=== PATIENT | male | born 1950 | race Caucasian/White ===

== ENCOUNTER 2016-04-18 08:50 | Day surgery (SDC) | payer BC ==
[2016-04-18] MEDS ORDERED: PROPOFOL 10 MG/ML VIAL IV ONE (14:00)
[2016-04-18] MEDS ORDERED: LIDOCAINE 2% MDV (20MG/ML) 20ML VIAL IV ONE (14:00)
[2016-04-18] MEDS ORDERED: FENTANYL PF 100MCG/2ML VIAL IV ONE (14:00)
--- NOTE | 2016-04-19 08:00 | Operative Note ---
DATE OF SURGERY: OPERATION: ESOPHAGOGASTRODUODENOSCOPY with Zamoraon dilation. PREOPERATIVE DIAGNOSIS: Pharyngoesophageal dysphagia of unclear etiology. POSTOPERATIVE DIAGNOSES: 1. Nonerosive antral gastritis. 2. Dysphagia. ESTIMATED BLOOD LOSS: None. SPECIMENS: None. PREPARATION: Not applicable. PROCEDURE: After informed consent was obtained from the patient, he was placed in the left lateral decubitus position in the endoscopy suite, sedated and monitored by the department of anesthesia. Once sedated, a well-lubricated GHY912 gastroscope was placed in the posterior oropharynx and under direct visualization passed to the proximal esophagus. The endoscope was advanced through the proximal, mid, and distal esophagus. There was no evidence of ulcers, erosions, strictures, varices, or mass lesion. There were no obvious changes throat would suggest eosinophilic esophagitis. The gastric body was unremarkable. In the antrum, there were some mild patchy erythematous changes. The duodenal bulb and sweep were unremarkable. J-turn views of the proximal stomach revealed no obvious mass lesion or inflammation. The endoscope was straightened and retracted from the patient. No abnormalities were identified. At this point a 52 Nepali Zamorano dilator was passed through the level of the maximal insertion and presumably to the level of the GE junction and removed. There was no resistance. There was no heme in the dilator. The endoscope was reinserted and there were no esophageal tears or any evidence of esophageal disruption noted. The endoscope was removed from the patient. RECOMMENDATIONS: We will have the patient undergo an esophagogram to further evaluate his swallowing issues. It is unclear to me whether this is a motility issue, as there does not appear to be an obvious structural abnormality. As always, thank you for allowing me to participate in the healthcare of your patients. Lito Danielson DO CC: Dr. Key DELAROSA
== END 2016-04-18 10:45 | disposition home or self-care (01) ==
LOC: HOP 08:50
PROVIDERS: ATTEND Internal Medicine Gastroenterology
DX: R13.10 Dysphagia, unspecified (principal); K29.60 Other gastritis without bleeding; E78.00 Pure hypercholesterolemia, unspecified
CPT/HCPCS: 43245; 00740; J3010

== ENCOUNTER 2016-06-26 20:57 | Emergency (ER) | payer BC ==
--- NOTE | 2016-06-26 21:54 | Emergency Department Record ---
History of Present Illness - General Chief Complaint: Shortness of breath Stated Complaint: RAPID PULSE Time Seen by Provider: 06/26/16 21:34 Source: Patient Mode of Arrival: Ambulatory Limitations: No limitations - History of Present Illness Initial Comments: The patient is here due to his HR being fast at home. He was walking on his treadmill and did 6 miles like he normally does and had no CP, SOB, WILLA or sweating. When he finished the walk about 2 hours ago his HR was about 110 beats per minute and usually slows down when he rests. Tonight his HR stayed at 110 for an hour after he was done walking. He denied any symptoms of pain, WILLA, sweating or any symptoms like his previous LA. Due to the HR staying elevated he decided to come to the ER. Presently he is asymptomatic and his HR is back to normal. MD Complaint: Anxiety Onset/Timin -: Hour(s) Worsens With: Nothing Associated Symptoms: Denies other symptoms Treatments Prior to Arrival: None - Related Data Home Oxygen Therapy: No Home Medications Medication Instructions Recorded Confirmed Last Taken Aspirin, Regular 325 mg PO DAILY 12/16/13 06/26/16 11/03/15 Atorvastatin Calcium [Lipitor] 40 mg PO DAILY 12/16/13 06/26/16 11/02/15 Carvedilol [Coreg] 3.125 mg PO BID 12/16/13 06/26/16 11/03/15 Gabapentin [Gabapentin] 300 mg PO TID 02/28/14 06/26/16 11/03/15 Pain Pump (Dilaudid) IP CONT 03/11/15 03/11/15 06/26/16 Hydrocodone/Ibuprofen [Vicoprofen 1 tab PO Q4H PRN 11/04/15 01/10/16 11/03/15 200-7.5 mg Tab] Allergies Allergy/AdvReac Type Severity Reaction Status Date / Time Penicillins Allergy Unknown RASH Verified 05/30/15 19:17 levofloxacin [From Levaquin] AdvReac Severe insomnia/an Verified 05/30/15 19:17 xiety Travel Screening - Travel/Exposure Within Last 30 Days Have you traveled within the last 30 days?: No - Travel/Exposure Within Last Year Have you traveled outside the [place] in the last year?: No - Additonal Travel Details Have you been exposed to anyone with a communicable illness?: No Review of Systems Constitutional: Denies: Chills, Fever Eyes: Denies: Eye discharge ENT: Denies: Congestion Respiratory: Denies: Cough, Dyspnea Cardiovascular: Denies: Arrhythmia, Chest pain, Dyspnea on exertion, Palpitations Past Medical History - SOCIAL HISTORY Smoking Status: Current every day smoker Alcohol Use: None Drug Use: None - RESPIRATORY Hx Respiratory Disorders: No - CARDIOVASCULAR Hx Cardio Disorders: Yes Hx Abnormal EKG: Yes (a fib) Hx Cardiac Cath: Yes Hx Heart Attack: Yes (2003) Hx Irregular Heartbeat: Yes Hx Pacemaker/Defib: Yes (pacer only) Hx Coronary Stent: Yes (2003 and 2012) - NEURO Hx Neuro Disorders: No - GI Hx GI Disorders: Yes Comment:: dysphagia - Hx Genitourinary Disorders: Yes Hx Kidney Stones: Yes - ENDOCRINE Hx Endocrine Disorders: Yes Hx Diabetes: Yes (diet controlled) Comment:: checks blood sugar occassionally 120-130 - MUSCULOSKELETAL Hx Musculoskeletal Disorders: Yes Hx Arthritis: Yes Comment:: degenerative spinal disease - PSYCH Hx Psych Problems: Yes Hx Anxiety: Yes - HEMATOLOGY/ONCOLOGY Hx Hematology/Oncology Disorders: Yes Hx Bruising: Yes Family Medical History Any Significant Family History?: Yes Hx Heart Disease: Father, Mother *Heart Comment: Both Parents had HOBSON's Physical Exam - General General Appearance: Alert, Oriented x3, Cooperative, No acute distress - Head Head exam: Atraumatic, Normocephalic, Normal inspection - Eye Eye exam: Normal appearance, PERRL - Neck Neck exam: Normal inspection, Full ROM. negative: Tenderness - Respiratory Respiratory exam: Normal lung sounds bilaterally. negative: Respiratory distress - Cardiovascular Cardiovascular Exam: Regular rate, Normal rhythm, Normal heart sounds. negative : Diastolic murmur, Systolic murmur - GI/Abdominal GI/Abdominal exam: Soft, Normal bowel sounds. negative: Tenderness - Extremities Extremities exam: Normal inspection, Full ROM, Normal capillary refill. negative: Tenderness - Neurological Neurological exam: Alert, Normal gait. negative: Abnormal gait, Motor sensory deficit Course Vital Signs 06/26/16 06/26/16 21:02 21:06 Temperature 98.5 F 98.5 F Pulse Rate 86 Pulse Rate [ 94 H Pulse Ox Probe] Respiratory 18 18 Rate Blood Pressure 168/84 Blood Pressure 168/84 [Left Arm] Pulse Ox 98 98 - Reevaluation(s) Reevaluation #1: The patient is doing very well at this time. He has had no further palpitation or high HR. 06/27/15 23:00 Reevaluation #2: The patient is ready for home. I did explain to him his lab tests are all WNL. He denies any further symptoms of high HR or any palpitations. I will put a consult in for an appointment with his Sales Representative Consultant Dr. Monroy for next week. 06/27/16 00:35 Medical Decision Making - Lab Data Result diagrams: 06/26/16 21:50 06/26/16 21:50 Disposition Disposition: Discharge Clinical Impression: Palpitations Disposition: Home, Self-Care Condition: (1) Good Instructions: Palpitations (ED) Additional Instructions: Please continue your regular medicines and see Dr. Monroy for recheck next week. Return to the ER for any problems. Referrals: [facility] [Provider Group] Forms: Patient Portal Access Time of Disposition: 00:32
[2016-06-26 22:02] LABS: BASO % 0.3 % (0-6); EOS % 1.8 % (0-6); GRAN % 79.1 % (47-80); HEMOGLOBIN 13.5 gm/dl (14.0-18.0); LYMPH % 12.4 % (16-45); MEAN CELL VOLUME 87.8 fl (81-97); MEAN CORPUSCULAR HEMOGLOBIN 30.4 pg (27-33); MEAN CORPUSCULAR HGB CONC 34.6 g/dl (32-36); MEAN PLATELET VOLUME 10.3 fl (7.4-10.4); MONO % 6.4 % (0-9); PLATELET COUNT 116 K/uL (130-400); RED BLOOD COUNT 4.44 M/uL (4.40-5.70); WHITE BLOOD COUNT W/O DIFF 6.8 K/uL (4.2-12.2)
[2016-06-26 22:15] LABS: ANION GAP 10.3 (7-16); BLOOD UREA NITROGEN 14 mg/dL (9-20); CARBON DIOXIDE 26.7 mmol/L (22-30); CREATINE PHOSPHOKINASE 109 U/L (55-170); CREATININE 0.8 mg/dL (0.66-1.25); EST GLOMERULAR FILTRATION RATE > 60 ml/min; GLUCOSE,RANDOM 163 mg/dL (70-110)
[2016-06-26 22:27] LABS: CKMB 2.5 ug/L (0-6); TROPONIN I < 0.012 ng/mL (0.00-0.034)
[2016-06-27 00:26] LABS: CKMB 2.1 ug/L (0-6); TROPONIN I < 0.012 ng/mL (0.00-0.034)
== END 2016-06-27 00:41 | disposition home or self-care (01) ==
LOC: ER 20:57
DX: R00.2 Palpitations (principal); R06.02 Shortness of breath; I48.91 Unspecified atrial fibrillation; E11.9 Type 2 diabetes mellitus without complications; I25.2 Old myocardial infarction; F17.210 Nicotine dependence, cigarettes, uncomplicated
CPT/HCPCS: 80048; 82550; 82553; 84484; 85025; 93005; 93010; 99284

== ENCOUNTER 2016-09-18 10:21 | Day surgery (SDC) | payer BC ==
--- NOTE | 2016-09-18 07:08 | History and Physical Report ---
DATE: 09/18/2016. CHIEF COMPLAINT: This is a patient with a history of noncardiogenic chest wall pain and intractable thoracic radiculitis. HISTORY OF PRESENT ILLNESS: Due to the failure of all therapy, he had a spinal cord stimulator trial conducted on 08/13/2016 with 75 to 90 percent pain control resulting. Due to the failure of all other therapies and the success of the stimulator trial, he presents for permanent implantation. PAST MEDICAL HISTORY: Noncontributory. PAST SURGICAL HISTORY: To be provided. MEDICATIONS ON ADMISSION: To be provided. ALLERGIES: Penicillin. PHYSICAL EXAMINATION: Height and Weight: Unavailable. Vital Signs: Unavailable. HEENT: Within normal limits. Lungs: Clear. Heart: Regular rate and rhythm. Abdomen: Nontender. Musculoskeletal: Examination of the musculoskeletal system shows the primary region of pain to be mid to inferior chest wall. This seems to extend from the posterior rib margins all the way to the sternum and the anterior axillary angle. The sensory meeks are intact. Neurologic: Cranial nerves are intact. IMPRESSION: 1. NONCARDIOGENIC CHEST WALL PAIN, ICD-10 CODE UNKNOWN. 2. THORACIC RADICULITIS, ICD-10 CODE M54.14. 3. INTERCOSTAL NEURITIS, ICD-10 CODE 258.0. PLAN: Due to the failure of all therapy and the success of the spinal cord stimulator trial, the patient presents today for the implantation of a permanent system. The procedure has been explained in detail. The potential risks, side effects, and complications have been reviewed including nerve root injury, spinal cord injury, dural puncture, spinal headache, and infection. He understands and has consented. We will consider the procedure outpatient, but an overnight stay will also be evaluated. LUI LUKE D.O. Date & Time JOB NUMBER: [id number] cc: Verenice Stephen
[~2016-09-18 10:21] MED LIST: ACETAMINOPHEN 1,000 MG/100 ML BTL IV ONE; CLINDAMYCIN 600MG/50ML PREMIX 600 MG/50 ML BAG IVPB ONE; FAMOTIDINE 20MG TABLET PO ONE; MECLIZINE 25 MG TABLET PO ONE; METOCLOPRAMIDE 10 MG TABLET PO ONE
[2016-09-18] MEDS ORDERED: LIDOCAINE 1% W/EPI 1:200,000 MPF 30ML SQ ONE (14:00)
[2016-09-18] MEDS ORDERED: CLINDAMYCIN 600MG/4 ML VIAL IV ONE (14:00)
[2016-09-18] MEDS ORDERED: BUPIVACAINE 0.5% W/EPI MPF 30 ML VIAL IVP ONE (14:00)
[2016-09-18] MEDS ORDERED: HYDROMORPHONE HCL 2 MG/ML VIAL IM PRN (16:04)
[2016-09-18] MEDS ORDERED: METOCLOPRAMIDE 10 MG TABLET PO PRN (16:04)
[2016-09-18] MEDS ORDERED: OXYCODONE/APAP 10MG-325MG TABLET PO PRN ×2 (16:04)
[2016-09-18] MEDS ORDERED: HYDROMORPHONE HCL 1 MG/ML CPJ IM PRN (16:04)
[2016-09-18] MEDS ORDERED: TEMAZEPAM 15 MG CAPSULE PO PRN ×2 (16:04)
[2016-09-18] MEDS ORDERED: DIPHENHYDRAMINE HCL 25 MG CAPSULE PO PRN ×2 (16:04)
[2016-09-18] MEDS ORDERED: DIPHENHYDRAMINE HCL IV 50 MG/ML VIAL IVP PRN ×2 (16:04)
[2016-09-18] MEDS ORDERED: HYDROCODONE/APAP 7.5/325MG TABLET PO PRN ×2 (16:04)
[2016-09-18] MEDS ORDERED: AL HYDROX/MAG HYDROX 30ML UD PO PRN (16:04)
[2016-09-18] MEDS ORDERED: METOCLOPRAMIDE HCL 10 MG/2 ML VIAL IVP PRN (16:04)
[2016-09-18] MEDS ORDERED: ACETAMINOPHEN 325 MG TAB PO PRN ×2 (16:04)
[2016-09-18] MEDS ORDERED: SENNOSIDES/DOCUSATE SODIUM UD CAPSULE PO PRN ×2 (16:04)
[2016-09-18] MEDS ORDERED: LIDOCAINE 2% MDV (20MG/ML) 20ML VIAL IV ONE (16:35)
[2016-09-18] MEDS ORDERED: PROPOFOL 10 MG/ML VIAL IV ONE (16:35)
[2016-09-18] MEDS ORDERED: *PACU ONLY* KETAMINE HCL 10 MG/ML (20ML) VIAL IV ONE (16:35)
[2016-09-18] MEDS ORDERED: MIDAZOLAM HCL 2MG/2ML VIAL IV ONE (16:35)
[2016-09-18] MEDS ORDERED: FENTANYL PF 100MCG/2ML VIAL IV ONE (16:35)
--- NOTE | 2016-09-18 16:51 | Operative Note - [place] ---
DATE OF SURGERY: 09/18/16 PREOPERATIVE DIAGNOSES: 1. NONCARDIOGENIC CHEST WALL PAIN, ICD-10 CODE = UNKNOWN. 2. THORACIC RADICULITIS, ICD-10 CODE = M54.16. OPERATION: 1. FLUOROSCOPICALLY-GUIDED EPIDURAL ACCESS LEFT T11-12, PLACEMENT OF SPINAL CORD STIMULATOR LEAD 1, A [employer] INFINION 16 WITH 16 ELECTRODES POSITIONED LEFT, T4. 2. COMPLEX PROGRAMMING LEAD 1, 20 MINUTES. 3. FLUOROSCOPICALLY-GUIDED EPIDURAL ACCESS LEFT T12-L1, PLACEMENT OF SPINAL CORD STIMULATOR LEAD 2, A [employer] INFINION 16 WITH 16 ELECTRODES POSITIONED RIGHT, T4. 4. COMPLEX PROGRAMMING LEAD 2, 20 MINUTES. 5. INCISION, SUBCUTANEOUS DISSECTION, AND ANCHORING OF LEAD 1 AND LEAD 2 WITH [employer] LOCKING ANCHOR. 6. INCISION, SUBCUTANEOUS DISSECTION, AND CREATION OF SUBCUTANEOUS POUCH AT LEFT POSTERIOR GLUTEAL MARGIN FOR GENERATOR IDENTIFIED A [employer] PROGRAMMABLE RECHARGEABLE. 7. TUNNELING BETWEEN POUCHES. PLACEMENT OF EXTERNAL PORTION OF LEAD 1 AND LEAD 2 INTO GENERATOR POUCH, EACH LEAD INTERFACED WITH BIFURCATED EXTENSION, EACH BIFURCATED EXTENSION INTERFACED TO GENERATOR. 8. PLACEMENT OF GENERATOR POUCH SECURING TO FASCIA WITH NONABSORBABLE SUTURE, PLACEMENT OF LEADS INTO POUCH. CLOSURE OF INCISIONS, VICRYL FOR FASCIA, RUNNING SUBCUTICULAR VICRYL FOR SKIN. DERMABOND CLOSURE. 9. COMPLEX PROGRAMMING, RECOVERY ROOM, INTERNAL GENERATOR HOME USE, TWO STIMULATORS, 20 MINUTES. SURGEON: LUI LUKE D.O. ANESTHESIA: LOCAL SEDATION. ANESTHESIA PROVIDER: SHEMAR SOLER CRNA. INDICATION: This patient with a history of intractable noncardiogenic chest wall pain and thoracic radiculitis. Due to the failure of all therapy, a spinal cord stimulator trial was conducted with up to 75 to 90% pain control. Due to the failure of all therapies and the success of the stimulator trial, he presents for implantation of a permanent system. PROCEDURE: Intravenous line, vital sign monitoring, IV sedation. Prepped and draped sterile technique by Anesthesia. With the patient prone, sterile prep, sterile technique, under imaging, the epidural interspace from the left at 11- 12 and 12-1 infiltrated then two separate curved access Epimed needles with loss -of-resistance into the space. Spinal cord stimulator lead 1, a [employer] Infinion 16 with 16 electrodes positioned left of the midline T4. With the epidural access at 12-1, spinal cord stimulator lead 2, a [employer] Infinion 16 with 16 electrodes, positioned right of the midline T4. Complex programming of lead 1 over 20 minute followed by complex programming of lead 2 over 20 minutes ultimately resulting in patterns of stimulation across the chest wall consistent with the area of his noncardiogenic pain. When asked, the patient indicating we had all the areas of his pain. He was given the option to implant the system, continue to program, or remove; he opted to implant. Questions were repeated with the same response. The skin above and below the needles were infiltrated, incision made, and subcutaneous dissection was conducted to the supraspinous fascia. The leads were removed and each lead was anchored to the supraspinous fascia with a [employer] [place]. At the left posterior gluteal margin or a site picked by the patient for the generator, skin infiltrated, incision made, and subcutaneous dissection was conducted to form a pouch of suitable size and depth for the generator identified as a [employer] Programmable Rechargeable. A tunneling tool was then used to carry the leads into the generator pouch and each lead was interfaced with a bifurcated extension, each bifurcated extension interfaced to the generator. Antibiotic irrigation. Bovie for hemostasis. The generator was anchored to the fascia with nonabsorbable suture and then the incisions were closed Vicryl for fascia and running subcuticular Vicryl for skin. Dermabond closure system was placed at the left posterior gluteal margin. The midline incision, because of oozing most probably because of nonsteroidal anti- inflammatory and Aspirin use, after closing, a pressure dressing was applied. He was then transported to the Recovery Room stable showing no side-effects from the procedure or the sedation. When fully awake, complex programming of the leads were performed with the internal generator over 20 minutes re- establishing stimulation and pain control to all of the appropriate areas. He will be kept overnight for observation because of the midline incision drainage. He will be kept flat, keeping pressure on the wound for the next four hours, then slowly elevated but monitored through the night, then discharged in the morning. DISCHARGE INSTRUCTIONS: 1. The sites will remain clean and dry. No showering or bathing in any way that would disrupt dressings. If it happens, contact the clinic. 2. Standard medications resumed, including, Levaquin, the antibiotic, 500 mg once a day for 14 days. 3. All other medications resumed. He will withhold Aspirin and nonsteroidal anti -inflammatories. If he has problems with the antibiotic, he should contact the clinic for substitution. All other instructions provided, numbers to contact, problems given. He will be discharged in the morning. cc: Dr. Kai Blackburn JOB NUMBER: [id number] MTDD
[2016-09-18] MEDS ORDERED: METOPROLOL SUCC 25 MG TAB.ER PO SCH (17:00)
[2016-09-18] MEDS: GABAPENTIN 300 MG CAPSULE PO SCH ×2 (18:17→21:07)
[2016-09-18] MEDS: 0.9 % SODIUM CHLORIDE 10ML SYR IVP SCH (21:09)
[2016-09-18] MEDS: CLINDAMYCIN 600MG/50ML PREMIX 600 MG/50 ML BAG IVPB SCH (21:09)
[2016-09-18] MEDS ORDERED: ATORVASTATIN 20 MG TABLET PO SCH (22:00)
[2016-09-19] MEDS: CLINDAMYCIN 600MG/50ML PREMIX 600 MG/50 ML BAG IVPB SCH ×2 (05:25→09:31)
[2016-09-19] MEDS: GABAPENTIN 300 MG CAPSULE PO SCH (09:32)
[2016-09-19] MEDS: 0.9 % SODIUM CHLORIDE 10ML SYR IVP SCH (09:33)
--- NOTE | 2016-09-21 08:05 | RADIOLOGY REPORT ---
EXAM: SPINE, 1 VIEW HISTORY: POST SPINAL CORD STIMULATOR IMPLANT. TECHNIQUE: Single AP view of the thoracic spine. COMPARISON: No prior thoracic spine series with which to compare. Comparison is made with a two-view chest x-ray of 01/17/16, however. FINDINGS: Since the prior chest x-ray, two catheters are seen to overlie the spine presumably extending up from the lumbar region and extending up into the thoracic region to the approximate level of theT3 and T4 vertebrae. Previously seen pacemaker remains in place. IMPRESSION: THE SPINAL CANAL CATHETERS EXTEND UP INTO THE THORACIC REGION WITH THE MORE SUPERIOR OF THE TWO AT THE T3 LEVEL AND THE MORE INFERIOR OF THE TWO AT THE T4 LEVEL. JOB NUMBER: [id number] MTDD
== END 2016-09-19 11:45 | disposition home or self-care (01) ==
LOC: SUR 10:21 → MEDSURG 16:34 → SUR 09-19 11:45
PROVIDERS: ATTEND Pain Medicine Interventional Pain Medicine
DX: M54.16 Radiculopathy, lumbar region (principal); R07.89 Other chest pain; G58.0 Intercostal neuropathy; E78.00 Pure hypercholesterolemia, unspecified; I48.91 Unspecified atrial fibrillation; Z95.0 Presence of cardiac pacemaker
CPT/HCPCS: 63685; 63650 ×2; 00300; 95972; 72020; J3010

== ENCOUNTER 2016-10-13 10:03 | Emergency (ER) | payer BC ==
[2016-10-13 10:33] LABS: URINE APPEARANCE CLOUDY; URINE BILIRUBIN NEGATIVE (NEGATIVE); URINE BLOOD LARGE (NEGATIVE); URINE COLOR RED; URINE KETONE 15 mg/dL (NEGATIVE); URINE LEUKOCYTE ESTERASE MODERATE (NEGATIVE); URINE NITRITE POSITIVE (NEGATIVE)
[2016-10-13 10:34] LABS: URINE PROTEIN 300 mg/dL (NEGATIVE)
--- NOTE | 2016-10-13 10:35 | Emergency Department Record ---
History of Present Illness - General Chief complaint: Male Urogenital Problem Stated complaint: URINATING BLOOD Time Seen by Provider: 10/13/16 10:17 Source: Patient, RN notes reviewed Mode of Arrival: Ambulatory - History of Present Illness Initial comments: bloody urine this am and he said he urinated last night and it was burning but he didn't have the light on so he doesn't know if blood in the toilet than. Back stimulator placed 4 weeks ago and it is drainaing at the insertion site and he was on cipro but he felt achy from that and yesterday Dr. El switched him to clindamycin. Complaint: Dysuria Onset/Timin -: Hour(s) Radiation: None Reports: Blood in urine, Dysuria - Related Data Home Medications Medication Instructions Recorded Confirmed Last Taken Aspirin, Regular 325 mg PO DAILY 12/16/13 06/26/16 10/13/16 Atorvastatin Calcium [Lipitor] 40 mg PO DAILY 12/16/13 10/13/16 10/13/16 Carvedilol [Coreg] 3.125 mg PO BID 12/16/13 06/26/16 10/13/16 Gabapentin [Gabapentin] 300 mg PO TID 02/28/14 10/13/16 10/13/16 Pain Pump (Dilaudid) IP CONT 03/11/15 03/11/15 10/13/16 Hydrocodone/Ibuprofen [Vicoprofen 1 tab PO Q4H PRN 11/04/15 01/10/16 10/13/16 200-7.5 mg Tab] Aspirin 325 mg PO DAILY 10/13/16 10/13/16 10/13/16 Clindamycin HCl 1 tab PO QID 10/13/16 10/13/16 10/13/16 Guaifenesin [Mucus Relief] 400 mg PO DAILY 10/13/16 10/13/16 10/13/16 Metoprolol Succinate [Toprol Xl] 25 mg PO DAILY 10/13/16 10/13/16 10/13/16 Naloxegol Oxalate [Movantik] 25 mg PO DAILY 10/13/16 10/13/16 10/13/16 Sennosides [Senna] 8.6 mg PO DAILY 10/13/16 10/13/16 10/13/16 Previous Rx's Medication Instructions Recorded Sulfamethoxazole/Trimethoprim 1 each PO BID #20 tablet 10/13/16 [Bactrim Ds Tablet] Allergies Allergy/AdvReac Type Severity Reaction Status Date / Time Penicillins Allergy Unknown RASH Verified 05/30/15 19:17 levofloxacin [From Levaquin] AdvReac Severe insomnia/an Verified 05/30/15 19:17 xiety Travel Screening - Travel/Exposure Within Last 30 Days Have you traveled within the last 30 days?: No - Travel/Exposure Within Last Year Have you traveled outside the [place] in the last year?: No - Additonal Travel Details Have you been exposed to anyone with a communicable illness?: No - Travel Symptoms Symptom Screening: None Review of Systems Reviewed: No additional complaints except as noted below Constitutional: Reports: As per HPI. Denies: Chills, Fever, Malaise, Night sweats, Weakness, Weight change Eyes: Reports: As per HPI. Denies: Eye discharge, Eye pain, Photophobia, Vision change ENT: Reports: As per HPI. Denies: Congestion, Dental pain, Ear pain, Epistaxis , Hearing loss, Throat pain Respiratory: Reports: As per HPI. Denies: Cough, Dyspnea, Hemoptysis, Stridor, Wheezes Cardiovascular: Reports: As per HPI. Denies: Arrhythmia, Chest pain, Dyspnea on exertion, Edema, Murmurs, Orthopnea, Palpitations, Paroxysmal nocturnal dyspnea, Rheumatic Fever, Syncope Endocrine: Reports: As per HPI. Denies: Fatigue, Heat or cold intolerance, Polydipsia, Polyuria Gastrointestinal: Reports: As per HPI. Denies: Abdominal pain, Constipation, Diarrhea, Hematemesis, Hematochezia, Melena, Nausea, Vomiting Genitourinary: Reports: As per HPI, Dysuria, Hematuria. Denies: Frequency, Incontinence, Retention, Testicular pain, Testicular mass, Urgency Musculoskeletal: Reports: As per HPI. Denies: Arthralgia, Back pain, Gout, Joint swelling, Myalgia, Neck pain Skin: Reports: As per HPI. Denies: Bruising, Change in color, Change in hair/ nails, Lesions, Pruritus, Rash Neurological: Reports: As per HPI. Denies: Abnormal gait, Confusion, Headache, Numbness, Paresthesias, Seizure, Tingling, Tremors, Vertigo, Weakness Psychiatric: Reports: As per HPI. Denies: Anxiety, Auditory hallucinations, Depression, Homicidal thoughts, Suicidal thoughts, Visual hallucinations Hematological/Lymphatic: Reports: As per HPI. Denies: Anemia, Blood Clots, Easy bleeding, Easy bruising, Swollen glands Past Medical History - SOCIAL HISTORY Smoking Status: Current every day smoker Alcohol Use: None Drug Use: None - RESPIRATORY Hx Respiratory Disorders: No - CARDIOVASCULAR Hx Cardio Disorders: Yes Hx Abnormal EKG: Yes (a fib) Hx Cardiac Cath: Yes Hx Heart Attack: Yes (2003) Hx Irregular Heartbeat: Yes Hx Pacemaker/Defib: Yes (pacer only) Hx Coronary Stent: Yes (2003 and 2012) - NEURO Hx Neuro Disorders: Yes Comment:: SCS and pain pump - GI Hx GI Disorders: Yes Hx of Polyps: Yes (COLON BENIGN) Comment:: dysphagia - Hx Genitourinary Disorders: Yes Hx Kidney Stones: Yes - ENDOCRINE Hx Endocrine Disorders: Yes Hx Diabetes: Yes (diet controlled) Comment:: checks blood sugar occassionally 120-130 - MUSCULOSKELETAL Hx Musculoskeletal Disorders: Yes - PSYCH Hx Psych Problems: No - HEMATOLOGY/ONCOLOGY Hx Hematology/Oncology Disorders: Yes Hx Bruising: Yes Family Medical History Any Significant Family History?: No Hx Heart Disease: Father, Mother *Heart Comment: Both Parents had HOBSON's Physical Exam - General General Appearance: Alert, Oriented x3, Cooperative, No acute distress - Head Head exam: Normal inspection - Eye Eye exam: Normal appearance, PERRL Pupils: Normal accommodation - ENT ENT exam: Normal exam, Mucous membranes moist, Normal external ear exam, Normal orophraynx, TM's normal bilaterally Ear exam: Normal external inspection. negative: External canal tenderness Nasal Exam: Normal inspection. negative: Discharge, Sinus tenderness Mouth exam: Normal external inspection, Tongue normal Teeth exam: Normal inspection. negative: Dental caries Throat exam: Normal inspection. negative: Tonsillar erythema, Tonsillar exudate - Neck Neck exam: Normal inspection, Full ROM. negative: Tenderness - Respiratory Respiratory exam: Normal lung sounds bilaterally. negative: Respiratory distress - Cardiovascular Cardiovascular Exam: Regular rate, Normal rhythm, Normal heart sounds - GI/Abdominal GI/Abdominal exam: Soft, Normal bowel sounds. negative: Tenderness - Rectal Rectal exam: Deferred - exam: Deferred - Extremities Extremities exam: Normal inspection, Full ROM, Normal capillary refill. negative: Tenderness - Back Back exam: Reports: Normal inspection, Full ROM. Denies: Muscle spasm, Rash noted, Tenderness - Neurological Neurological exam: Alert, Normal gait, Oriented X3, Reflexes normal - Psychiatric Psychiatric exam: Normal affect, Normal mood - Skin Skin exam: Dry, Intact, Normal color, Warm Course Vital Signs 10/13/16 10:04 Temperature 98.3 F Pulse Rate 72 Respiratory 16 Rate Blood Pressure 116/80 Pulse Ox 99 Disposition Clinical Impression: Hematuria UTI (urinary tract infection) Qualifiers: Urinary tract infection type: acute cystitis Hematuria presence: with hematuria Qualified Code(s): N30.01 - Acute cystitis with hematuria Disposition: Home, Self-Care Condition: (2) Stable Instructions: Hematuria (ED), Urinary Traction Infection in Older Adults (ED) Additional Instructions: follow up with DR. Perez in one week follow up with urology and consult will be started today for Dr. Jaramillo for cystoscopy. Prescriptions: Sulfamethoxazole/Trimethoprim [Bactrim Ds Tablet] 1 each PO BID #20 tablet Forms: Patient Portal Access Time of Disposition: 10:58
[2016-10-13 10:42] LABS: URINE BACTERIA 1+; URINE EPITHELIAL CELLS 0 - 2 (FEW)
[2016-10-13 10:46] LABS: BASO % 0.2 % (0-6); EOS % 2.5 % (0-6); GRAN % 78.3 % (47-80); HEMATOCRIT 37.9 % (42.0-52.0); HEMOGLOBIN 13.2 gm/dl (14.0-18.0); LYMPH % 13.2 % (16-45); MEAN CELL VOLUME 86.9 fl (81-97); MEAN CORPUSCULAR HGB CONC 34.8 g/dl (32-36); MONO % 5.8 % (0-9); PLATELET COUNT 216 K/uL (130-400); RED BLOOD COUNT 4.36 M/uL (4.40-5.70); RED CELL DISTRIBUTION WIDTH 11.7 % (11.5-14.5); WHITE BLOOD COUNT W/O DIFF 9.6 K/uL (4.2-12.2)
[2016-10-13 10:48] LABS: MEAN CORPUSCULAR HEMOGLOBIN 30.2 pg (27-33)
[2016-10-13 10:59] LABS: ANION GAP 8.6 (7-16); BLOOD UREA NITROGEN 14 mg/dL (9-20); CARBON DIOXIDE 25.4 mmol/L (22-30); CREATININE 0.7 mg/dL (0.66-1.25); EST GLOMERULAR FILTRATION RATE > 60 ml/min; GLUCOSE,RANDOM 127 mg/dL (70-110)
== END 2016-10-13 11:12 | disposition home or self-care (01) ==
LOC: ER 10:03
DX: N30.01 Acute cystitis with hematuria (principal)
CPT/HCPCS: 80048; 81001; 85025; 99283

== ENCOUNTER 2016-10-21 11:49 | Emergency (ER) | payer BC ==
[2016-10-21 12:23] LABS: HEMATOCRIT 34.6 % (42.0-52.0); HEMOGLOBIN 11.8 gm/dl (14.0-18.0); MEAN CELL VOLUME 87.8 fl (81-97); MEAN CORPUSCULAR HEMOGLOBIN 29.9 pg (27-33); MEAN CORPUSCULAR HGB CONC 34.1 g/dl (32-36); MEAN PLATELET VOLUME 10.2 fl (7.4-10.4); PLATELET COUNT 184 K/uL (130-400); RED BLOOD COUNT 3.94 M/uL (4.40-5.70); RED CELL DISTRIBUTION WIDTH 12.1 % (11.5-14.5); WHITE BLOOD COUNT W/O DIFF 7.7 K/uL (4.2-12.2)
--- NOTE | 2016-10-21 12:23 | Emergency Department Record ---
History of Present Illness - General Chief complaint: Rash Stated complaint: Rash Time Seen by Provider: 10/21/16 12:06 Source: Patient, Family Mode of Arrival: Ambulatory Limitations: No limitations - History of Present Illness Initial comments: The patient is here due to having a rash on the L arm mainly with a minimal rash to the lower legs and R arm for a week. The L arm rash is now improving. He denies any pain, itching, discomfort, WILLA, SOB or trouble swallowing. The patient has been on Clindamycin for weeks due to having a pain pump placed a month ago and having drainage in the area. That was placed by Dr. El and the patient does have an appointment in 4 days with him. He also was in the ER 8 days ago for hematuria and was placed on Bacrim. The patient states the hematuria has resolved and he does have an appointment with a Urologist in 2 days. MD complaint: Rash Onset/Timin -: Days(s) Severity: Mild Severity scale (1-10): 2 Quality: Aching Consistency: Constant - Related Data Home Medications Medication Instructions Recorded Confirmed Last Taken Aspirin, Regular 325 mg PO DAILY 12/16/13 10/21/16 1 Day Ago ~10/20/16 Atorvastatin Calcium [Lipitor] 40 mg PO DAILY 12/16/13 10/21/16 1 Day Ago ~10/20/16 Carvedilol [Coreg] 3.125 mg PO BID 12/16/13 10/21/16 1 Day Ago ~10/20/16 Gabapentin [Gabapentin] 300 mg PO TID 02/28/14 10/21/16 1 Day Ago ~10/20/16 Pain Pump (Dilaudid) IP CONT 03/11/15 03/11/15 10/21/16 Hydrocodone/Ibuprofen [Vicoprofen 1 tab PO Q4H PRN 11/04/15 10/21/16 1 Day Ago 200-7.5 mg Tab] ~10/20/16 Aspirin 325 mg PO DAILY 10/13/16 10/21/16 1 Day Ago ~10/20/16 Clindamycin HCl 1 tab PO QID 10/13/16 10/21/16 1 Day Ago ~10/20/16 Guaifenesin [Mucus Relief] 400 mg PO DAILY 10/13/16 10/21/16 1 Day Ago ~10/20/16 Metoprolol Succinate [Toprol Xl] 25 mg PO DAILY 10/13/16 10/21/16 1 Day Ago ~10/20/16 Naloxegol Oxalate [Movantik] 25 mg PO DAILY 10/13/16 10/21/16 1 Day Ago ~10/20/16 Sennosides [Senna] 8.6 mg PO DAILY 10/13/16 10/21/16 1 Day Ago ~10/20/16 Previous Rx's Medication Instructions Recorded Sulfamethoxazole/Trimethoprim 1 each PO BID #20 tablet 10/13/16 [Bactrim Ds Tablet] Allergies Allergy/AdvReac Type Severity Reaction Status Date / Time Penicillins Allergy Unknown RASH Verified 10/21/16 11:59 levofloxacin [From Levaquin] AdvReac Severe insomnia/an Verified 10/21/16 11:59 xiety Travel Screening - Travel/Exposure Within Last 30 Days Have you traveled within the last 30 days?: No - Travel/Exposure Within Last Year Have you traveled outside the [place] in the last year?: No - Additonal Travel Details Have you been exposed to anyone with a communicable illness?: No - Travel Symptoms Symptom Screening: None Review of Systems Constitutional: Denies: Chills, Fever Eyes: Denies: Eye discharge ENT: Denies: Congestion Respiratory: Denies: Cough, Dyspnea Past Medical History - SOCIAL HISTORY Smoking Status: Current every day smoker Alcohol Use: None Drug Use: None - RESPIRATORY Hx Respiratory Disorders: No - CARDIOVASCULAR Hx Cardio Disorders: Yes Hx Abnormal EKG: Yes (a fib) Hx Cardiac Cath: Yes Hx Heart Attack: Yes (2003) Hx Irregular Heartbeat: Yes Hx Pacemaker/Defib: Yes (pacer only) Hx Coronary Stent: Yes (2003 and 2012) - NEURO Hx Neuro Disorders: Yes Comment:: SCS and pain pump - GI Hx GI Disorders: Yes Hx of Polyps: Yes (COLON BENIGN) Comment:: dysphagia - Hx Genitourinary Disorders: Yes Hx Kidney Stones: Yes - ENDOCRINE Hx Endocrine Disorders: Yes Hx Diabetes: Yes (diet controlled) Comment:: checks blood sugar occassionally 120-130 - MUSCULOSKELETAL Hx Musculoskeletal Disorders: Yes - PSYCH Hx Psych Problems: No Hx Anxiety: Yes - HEMATOLOGY/ONCOLOGY Hx Hematology/Oncology Disorders: Yes Hx Bruising: Yes Family Medical History Any Significant Family History?: Yes Hx Heart Disease: Father, Mother *Heart Comment: Both Parents had HOBSON's Physical Exam - General General Appearance: Alert, Oriented x3, Cooperative, No acute distress - Head Head exam: Atraumatic, Normocephalic, Normal inspection - Eye Eye exam: Normal appearance, PERRL - ENT Throat exam: Normal inspection. negative: Tonsillar erythema, Tonsillar exudate - Neck Neck exam: Normal inspection, Full ROM. negative: Tenderness - Respiratory Respiratory exam: Normal lung sounds bilaterally. negative: Respiratory distress - Cardiovascular Cardiovascular Exam: Regular rate, Normal rhythm, Normal heart sounds - Extremities Extremities exam: Full ROM, Other (There are discrete mildly erythematous macular and papular lesions to the posterior L arm mainly with just a few lesions to the R posterior arm and anterior lower legs. They are not warm, tender or urticarial.). negative: Normal inspection, Tenderness Course Vital Signs 10/21/16 11:50 Temperature 98.7 F Pulse Rate 63 Respiratory 16 Rate Blood Pressure 122/79 Pulse Ox 98 - Reevaluation(s) Reevaluation #1: The patient is doing well. He denies any pain or discomfort and no new symptoms. I did go over his lab results and did discus the plan with his PCP Dr. Crook. We will stop the Bactrim and have him keep his appointments for this week as planned. 10/21/16 13:23 Medical Decision Making - Lab Data Result diagrams: 10/21/16 12:18 10/21/16 12:18 Disposition Disposition: Discharge Clinical Impression: Rash Disposition: Home, Self-Care Condition: (1) Good Instructions: Acute Rash (ED) Additional Instructions: Please stop the Bactrim and use Benadryl for the itching. Please keep your appointments with your doctors for this week. Please see your PCP if not better in 3 days. Return to the ER for any problems. Forms: Patient Portal Access Time of Disposition: 13:23 Quality - Quality Measures Quality Measures: N/A - Blood Pressure Screening Blood Pressure Classification: Pre-Hypertensive BP Reading Systolic Measurement: 122 Diastolic Measurement: 79 Screening for High Blood Pressure: < Pre-Hypertensive BP, F/U Documented > [ [id number]] Pre-Hypertensive Follow-up Interventions: Follow-up with rescreen every year.
[2016-10-21 12:35] LABS: ANION GAP 8.4 (7-16); BLOOD UREA NITROGEN 15 mg/dL (9-20); CARBON DIOXIDE 25.6 mmol/L (22-30); CREATININE 0.8 mg/dL (0.66-1.25); EST GLOMERULAR FILTRATION RATE > 60 ml/min; GLUCOSE,RANDOM 101 mg/dL (70-110)
[2016-10-21 12:52] LABS: URINE APPEARANCE SL CLOUDY; URINE BILIRUBIN NEGATIVE (NEGATIVE); URINE BLOOD MODERATE (NEGATIVE); URINE COLOR YELLOW; URINE GLUCOSE (UA) NEGATIVE (NEGATIVE); URINE KETONE NEGATIVE (NEGATIVE); URINE LEUKOCYTE ESTERASE TRACE (NEGATIVE); URINE NITRITE NEGATIVE (NEGATIVE); URINE PROTEIN TRACE (NEGATIVE); URINE UROBILINOGEN 0.2 E.U./dL (0.20 - 1.00)
[2016-10-21 13:04] LABS: URINE BACTERIA 1+; URINE SQUAMOUS EPITHELIAL CELL 0 - 2 /hpf
== END 2016-10-21 13:34 | disposition home or self-care (01) ==
LOC: ER 11:49
DX: R21 Rash and other nonspecific skin eruption (principal); I25.2 Old myocardial infarction; F17.210 Nicotine dependence, cigarettes, uncomplicated
CPT/HCPCS: 80048; 81001; 85027; 99283

== ENCOUNTER 2016-11-06 10:24 | Inpatient (IN) | payer BC ==
--- NOTE | 2016-11-06 06:57 | History and Physical Report ---
DATE: 11/06/2016. CHIEF COMPLAINT: This is a patient with an implanted spinal cord stimulator placed on September 18, 2016. He has had a breakdown of the midline incision. HISTORY OF PRESENT ILLNESS: At a subsequent emergency room evaluation cultures identified a MRSA bacterial infection. He is here for removal of the system. PAST MEDICAL HISTORY: Noncontributory. PAST SURGICAL HISTORY: To be provided including stimulator implant. MEDICATIONS ON ADMISSION: Currently placed on clindamycin. ALLERGIES: Penicillin. SOCIAL HISTORY: To be provided. FAMILY HISTORY: To be provided. REVIEW OF SYSTEMS: To be provided. PHYSICAL EXAMINATION: General: Height is 5 feet, 10 inches. Weight is 169 pounds. Vital Signs from Previous Admission: Blood pressure 103/60, pulse 60, respiratory rate 16, 02 saturation 97 percent. He is afebrile. HEENT: Within normal limits. Lungs: Clear. Heart: Regular rate and rhythm. Abdomen: Nontender. Musculoskeletal: Examination shows the midline incision for the spinal cord stimulator to be draining a purulent discharge. The incisional site at the left posterior gluteal margin for the generator is intact. Sensory meeks are intact. Neurologic: Cranial nerves are intact. IMPRESSION: 1. THORACIC RADICULITIS, ICD-10 CODE M54.14. 2. INTERCOSTAL NEURITIS, ICD-10 CODE G58.0. 3. SPINAL CORD STIMULATOR IMPLANT WITH WOUND INFECTION. PLAN: The patient is here for removal of the stimulator and generator and continued antibiotic therapy. He already has an appointment to be seen at a wound clinic within the next seven days. The procedure will be considered outpatient. An overnight stay will be evaluated. LUI LUKE D.O. Date & Time JOB NUMBER: [id number] cc: Verenice Stephen
[~2016-11-06 10:24] MED LIST changes: -CLINDAMYCIN 600MG/50ML PREMIX 600 MG/50 ML BAG IVPB ONE; +VANCOMYCIN HCL 1,000 MG in 0.9 % SODIUM CHLORIDE 250ML 250 ML IVPB ONE
[2016-11-06 10:53] LABS: INR 1.05; PARTIAL THROMBOPLASTIN TIME 27.9 SECONDS (24.5-39.1); PROTHROMBIN TIME (PATIENT) 11.4 SECONDS (9.5-12.1)
[2016-11-06] MEDS ORDERED: BUPIVACAINE 0.5% W/EPI MPF 30 ML VIAL IVP ONE (15:07)
[2016-11-06] MEDS ORDERED: VANCOMYCIN HCL 1 GM VIAL IVPB ONE (15:07)
[2016-11-06] MEDS ORDERED: LIDOCAINE 1% W/EPI 1:200,000 MPF 30ML SQ ONE (15:07)
[2016-11-06] MEDS ORDERED: SENNOSIDES/DOCUSATE SODIUM UD CAPSULE PO PRN ×2 (15:13→15:44)
[2016-11-06] MEDS ORDERED: HYDROMORPHONE HCL 1 MG/ML CPJ IM PRN (15:13)
[2016-11-06] MEDS ORDERED: OXYCODONE/APAP 10MG-325MG TABLET PO PRN (15:13)
[2016-11-06] MEDS ORDERED: DIPHENHYDRAMINE HCL 25 MG CAPSULE PO PRN (15:13)
[2016-11-06] MEDS ORDERED: DIPHENHYDRAMINE HCL IV 50 MG/ML VIAL IV PRN ×2 (15:13→15:44)
[2016-11-06] MEDS ORDERED: ACETAMINOPHEN 325 MG TAB PO PRN ×2 (15:13→15:44)
[2016-11-06] MEDS ORDERED: METOCLOPRAMIDE HCL 10 MG/2 ML VIAL IV PRN (15:13)
[2016-11-06] MEDS ORDERED: AL HYDROX/MAG HYDROX 30ML UD PO PRN (15:13)
[2016-11-06] MEDS ORDERED: HYDROCODONE/APAP 7.5/325MG TABLET PO PRN ×2 (15:13→15:44)
[2016-11-06] MEDS ORDERED: TEMAZEPAM 15 MG CAPSULE PO PRN ×2 (15:13→15:44)
[2016-11-06] MEDS ORDERED: MIDAZOLAM HCL 2MG/2ML VIAL IV ONE (15:14)
[2016-11-06] MEDS ORDERED: PROPOFOL 10 MG/ML VIAL IV ONE (15:14)
[2016-11-06] MEDS ORDERED: HYDROMORPHONE HCL 2 MG/ML VIAL IV ONE (15:14)
[2016-11-06] MEDS ORDERED: HYDROMORPHONE HCL 2 MG/ML VIAL IM PRN (15:44)
[2016-11-06 16:03] LABS: BASO % 0.4 % (0-6); EOS % 1.7 % (0-6); GRAN % 74.4 % (47-80); HEMATOCRIT 31.1 % (42.0-52.0); LYMPH % 19.7 % (16-45); MEAN CELL VOLUME 89.1 fl (81-97); MEAN CORPUSCULAR HGB CONC 32.2 g/dl (32-36); MEAN PLATELET VOLUME 10.1 fl (7.4-10.4); MONO % 3.8 % (0-9); PLATELET COUNT 209 K/uL (130-400); RED BLOOD COUNT 3.49 M/uL (4.40-5.70); RED CELL DISTRIBUTION WIDTH 12.3 % (11.5-14.5); WHITE BLOOD COUNT W/O DIFF 6.9 K/uL (4.2-12.2)
[2016-11-06 16:06] LABS: MEAN CORPUSCULAR HEMOGLOBIN 28.6 pg (27-33)
[2016-11-06 16:12] LABS: ALB/GLOB RATIO 0.9 (1.1-1.8); ALBUMIN 2.6 gm/dL (3.5-5.0); ALKALINE PHOSPHATASE 53 U/L (38-126); ALT/SGPT 27 U/L (21-72); ANION GAP 4.5 (7-16); AST/SGOT 12 U/L (17-59); BLOOD UREA NITROGEN 7 mg/dL (9-20); CARBON DIOXIDE 32.5 mmol/L (22-30); CREATININE 0.7 mg/dL (0.66-1.25); EST GLOMERULAR FILTRATION RATE > 60 ml/min; GLUCOSE,RANDOM 85 mg/dL (70-110); TOTAL PROTEIN 5.5 gm/dL (6.3-8.2)
--- NOTE | 2016-11-06 22:22 | Operative Note - Ferro ---
DATE OF SURGERY: 11/06/16 PREOPERATIVE DIAGNOSES: 1. THORACIC RADICULITIS. NON-CARDIOGENIC CHEST WALL PAIN. ICD-10 CODE = M54.14. 2. THORACIC RADICULITIS AND LUMBAR RADICULITIS, ICD-10 CODE = M54.16. 3. SPINAL CORD STIMULATOR WITH POUCH AND WOUND INFECTION. OPERATION: 1. INCISION AND SUBCUTANEOUS DISSECTION AND REMOVAL OF 2-LEAD SPINAL CORD STIMULATORS. 2. INCISION, SUBCUTANEOUS DISSECTION, AND REMOVAL OF INTERNAL PULSE GENERATOR AND CONNECTIONS. 3. AEROBIC AND ANAEROBIC CULTURES PREVIOUS MIDLINE INCISION TODAY AT LEFT POSTERIOR GLUTEAL MARGIN WITH GENERATOR POUCH. SURGEON: LUI LUKE D.O. ANESTHESIA: LOCAL SEDATION. ANESTHESIA PROVIDER: KAREN WOODS CRNA INDICATIONS: This patient presents with history of non-cardiogenic chest wall pain with a spinal cord stimulator implant approximately 4 to 5 weeks previous. Over the initial period of time, he developed a small wound, possible suture granuloma, at the inferior midline incision. Antibiotic therapy appeared to help over subsequent weeks. An area of purulent discharge developed. Antibiotics were changed. He was monitored and then at that point it was felt appropriate for Wound Clinic evaluation. Because of a 4 to 6 week Wound Clinic delay, it was felt appropriate to remove the system. Antibiotic cultures done in the Emergency Room had indicated MRSA, Vancomycin sensitive. He was placed on antibiotics and then brought to the Operating Room for removal today. PROCEDURE: Intravenous line, vital sign monitoring, IV sedation by Anesthesia. The patient was positioned prone. Sterile prep, sterile technique under imaging and after the two incisions were infiltrated, the midline incision was opened. Antibiotic irrigation performed. The leads and all sutures were removed intact. The leads were not submitted to culture because upon removal they were pulled down into the incision, which itself was infected. At the left posterior gluteal margin, the generator incision was infiltrated and an incision made. Purulent discharge was noted. Aerobic and anaerobic cultures were taken. The generator and interface connectors were all removed. Vigorous pressure-induced irrigation performed at both sites. Vancomycin dry powder was then sprinkled into both incisions and the incisions were closed. Vicryl for fascia, didier for skin. Appropriate dressings were placed and he was transported to the Recovery Room stable showing no side-effects from the procedure or the sedation. He will be kept overnight for observation and then transferred to Service for further treatment and evaluation. DISCHARGE INSTRUCTIONS: 1. The sites will remain clean and dry. He will be contacted by the office in 3 to 5 days to be seen in the office and check the incisions in 7 to 10 days. 2. Standard medications resumed including, continuing his antibiotic. 3. His care will be transferred by way of a consult to Dr. Manning for medical management as well as discharge planning, planning of antibiotic therapy, and possible PICC line placement. This will include Visiting Nurse evaluation and antibiotic therapy. Other instructions provided. CC: JUAN Vera Dr. JOB NUMBER: [id number] [facility]
[2016-11-06] MEDS: VANCOMYCIN HCL 1,000 MG in 0.9 % SODIUM CHLORIDE 250ML 250 ML IVPB SCH (23:00)
[2016-11-06] MEDS ORDERED: 0.9 % SODIUM CHLORIDE 10ML SYR IVP SCH (23:15)
[2016-11-07] MEDS ORDERED: HEPARIN SODIUM FLUSH 100 UNITS/ML SYR 5ML IV PRN (00:56)
[2016-11-07] MEDS ORDERED: 0.9 % SODIUM CHLORIDE 10ML SYR IVP PRN (00:56)
--- NOTE | 2016-11-07 07:18 | RADIOLOGY REPORT ---
EXAM: AP CHEST HISTORY: PICC LINE PLACEMENT. TECHNIQUE: AP view of the chest was obtained. Comparison: Chest x-ray 01/17/16. FINDINGS: Left side pacemaker present. Right PICC line placement with the tip overlying the mid SVC. The lungs are clear. The cardiac silhouette and diaphragm are unremarkable. Superior migration of the humeral heads consistent with chronic rotator cuff disease. IMPRESSION: RIGHT PICC LINE TIP AT THE MID SVC IN GOOD POSITION. NO ACUTE PROCESS. JOB NUMBER: [id number] MTDD
--- NOTE | 2016-11-07 07:30 | Physician Progress Note ---
Subjective - Date Date of Physician Progress Note: 11/07/16 Objective - Vital Signs Vital Signs: Vital Signs - Last 24 Hrs Temp Pulse Pulse Pulse Resp BP Pulse Ox 11/07/16 05:59 80 16 11/07/16 05:52 98.5 F 58 L 14 99/68 96 11/07/16 03:07 98.1 F 61 14 103/67 98 11/06/16 22:23 98.3 F 65 24 103/58 99 11/06/16 15:00 98 F 69 16 98/55 98 11/06/16 14:50 98.2 F 68 16 108/57 98 11/06/16 14:35 98 F 67 16 102/56 11/06/16 14:30 65 18 11/06/16 14:20 98.1 F 65 16 103/55 98 Results - Labs Result Diagrams: 11/06/16 15:56 11/06/16 15:56 Labs Last 24 Hours: Laboratory Results - last 24 hr 11/06/16 11/06/16 11/06/16 10:31 15:56 15:56 WBC 6.9 RBC 3.49 L Hgb 10.0 L Hct 31.1 L MCV 89.1 MCH 28.6 MCHC 32.2 RDW 12.3 Plt Count 209 MPV 10.1 Gran % 74.4 Lymphocytes % 19.7 Monocytes % 3.8 Eosinophils % 1.7 Basophils % 0.4 PT 11.4 INR 1.05 APTT 27.90 Bleeding Time 4.0 Sodium 140 Potassium 4.4 Chloride 103 Carbon Dioxide 32.5 H Anion Gap 4.5 L BUN 7 L Creatinine 0.7 Estimated GFR > 60 Random Glucose 85 Calcium 7.8 L Total Bilirubin 0.60 AST 12 L ALT 27 Alkaline Phosphatase 53 Total Protein 5.5 L Albumin 2.6 L Globulin 2.9 Albumin/Globulin Ratio 0.9 L DVT/PE Assessment - Risk for VTE Risk for VTE: No - Active Medicaitons Current Medications: Current Medications Acetaminophen (Tylenol 325mg) 325 mg PO Q4H PRN PRN Reason: PAIN/TEMP Acetaminophen (Tylenol 325mg) 650 mg PO Q4H PRN PRN Reason: PAIN/TEMP Hydrocodone Bitart/Acetaminophen ([place] 7.5mg/325mg) 1 each PO Q4H PRN PRN Reason: Pain - General Hydrocodone Bitart/Acetaminophen ([place] 7.5mg/325mg) 2 each PO Q4H PRN PRN Reason: Pain - General Al Hydroxide/Mg Hydroxide (Maalox) 30 ml PO Q4H PRN PRN Reason: GI UPSET Diphenhydramine HCl (Benadryl Capsule) 25 mg PO Q4H PRN PRN Reason: ITCH/HIVES Diphenhydramine HCl (Benadryl Iv) 25 mg IV Q4H PRN PRN Reason: ITCHING Diphenhydramine HCl (Benadryl Iv) 50 mg IV Q4H PRN PRN Reason: ITCHING Heparin Sodium (Porcine) () 500 unit IV BID SHANEKA Heparin Sodium (Porcine) () 500 unit IV ASDIR PRN PRN Reason: flush PICC after each use prn Last Admin: 11/07/16 01:09 Dose: 500 unit Hydromorphone HCl (Dilaudid) 1 mg IM Q4H PRN PRN Reason: Pain - Severe (8-10) Hydromorphone HCl (Dilaudid) 2 mg IM Q4H PRN PRN Reason: Pain - Severe (8-10) Vancomycin HCl 1,000 mg/ (Sodium Chloride) 250 mls @ 250 mls/60 min IVPB Q12H [facility] Stop: 11/11/16 22:01 Last Infusion: 11/07/16 01:05 Dose: Infused Metoclopramide HCl (Reglan) 10 mg IV Q6H PRN PRN Reason: NAUSEA/VOMITING Oxycodone/Acetaminophen (Percocet 10-325 Mg Tablet) 1 each PO Q4H PRN PRN Reason: Pain - Moderate (5-7) Oxycodone/Acetaminophen (Percocet 10-325 Mg Tablet) 2 each PO Q4H PRN PRN Reason: Pain - Severe (8-10) Senna/Docusate Sodium (Senna Plus) 2 each PO BID PRN PRN Reason: Constipation Senna/Docusate Sodium (Senna Plus) 4 each PO BID PRN PRN Reason: Constipation Sodium Chloride () 10 ml IVP Q12H SHANEKA Sodium Chloride () 10 ml IVP Q12H PRN PRN Reason: flush PICC each use prn Last Admin: 11/07/16 01:09 Dose: 10 ml Temazepam (Restoril) 15 mg PO QHS PRN PRN Reason: INSOMNIA Temazepam (Restoril) 30 mg PO QHS PRN PRN Reason: INSOMNIA AMI Plan - Labs Result Diagrams: 11/06/16 15:56 11/06/16 15:56
--- NOTE | 2016-11-07 07:31 | Consult ---
Consult Order Detail - Reason for Consult Consult Date: 11/06/16 - Chief Complaint Chief Complaint: THORACIC RADICULOPATHY; MRSA infection ROS Constitutional: Denies: Chills, Fever - Respiratory Respiratory: Denies: Cough, Dyspnea - Cardiovascular Cardiovascular: Denies: Chest pain, Edema, Palpitations - Gastrointestinal Gastrointestinal: Denies: Abdominal pain, Diarrhea, Nausea, Vomiting - Musculoskeletal Musculoskeletal: Reports: Back pain - Neurological Neurological: Denies: Confusion, Headache, Numbness, Tingling, Weakness Past Medical History - SOCIAL HISTORY Smoking Status: Current every day smoker - RESPIRATORY Hx Respiratory Disorders: No - CARDIOVASCULAR Hx Cardio Disorders: Yes Hx Abnormal EKG: Yes (a fib) Hx Cardiac Cath: Yes Hx Heart Attack: Yes (2003) 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 To see Dr Cummings in November - ENDOCRINE Hx Endocrine Disorders: Yes Hx Diabetes: Yes (diet controlled) Comment:: recent FBS 110-130 - MUSCULOSKELETAL Hx Musculoskeletal Disorders: Yes Comment:: skin problems w/spots, rash-tests being done - PSYCH Hx Psych Problems: No Hx Anxiety: Yes - HEMATOLOGY/ONCOLOGY Hx Hematology/Oncology Disorders: Yes Hx Bruising: Yes Family Medical History Any Significant Family History?: Yes Hx Heart Disease: Father, Mother *Heart Comment: Both Parents had HOBSON's H&P Meds - Home Medications and Allergies Home Medications Medication Instructions Recorded Confirmed Last Taken Aspirin, Regular 325 mg PO DAILY 12/16/13 10/21/16 1 Day Ago ~10/20/16 Atorvastatin Calcium [Lipitor] 40 mg PO DAILY 12/16/13 10/21/16 1 Day Ago ~10/20/16 Gabapentin [Gabapentin] 300 mg PO TID 02/28/14 10/21/16 1 Day Ago ~10/20/16 Pain Pump (Dilaudid) IP CONT 03/11/15 03/11/15 10/21/16 Guaifenesin [Mucus Relief] 400 mg PO DAILY 10/13/16 10/21/16 1 Day Ago ~10/20/16 Metoprolol Succinate [Toprol Xl] 25 mg PO DAILY 10/13/16 10/21/16 1 Day Ago ~10/20/16 Naloxegol Oxalate [Movantik] 25 mg PO DAILY 10/13/16 10/21/16 1 Day Ago ~10/20/16 Allergies Allergy/AdvReac Type Severity Reaction Status Date / Time sulfamethoxazole Allergy Intermediate RASH Verified 11/06/16 15:38 [From Bactrim] Penicillins Allergy Unknown PT UNSURE Verified 11/06/16 15:38 OF REACTION trimethoprim [From Bactrim] Allergy RASH Verified 11/06/16 15:38 levofloxacin [From Levaquin] AdvReac Intermediate RASH Verified 11/06/16 15:38 Physical Exam - General General Appearance: Alert, Oriented x3, Cooperative, No acute distress - Head Head exam: Normal inspection - Eye Eye exam: Normal appearance, PERRL - ENT ENT exam: Normal exam, Mucous membranes moist, Normal external ear exam, Normal orophraynx, TM's normal bilaterally Ear exam: Normal external inspection. negative: External canal tenderness Nasal Exam: Normal inspection. negative: Discharge, Sinus tenderness Mouth exam: Normal external inspection, Tongue normal Teeth exam: Normal inspection. negative: Dental caries Throat exam: Normal inspection. negative: Tonsillar erythema, Tonsillar exudate - Neck Neck exam: Normal inspection, Full ROM. negative: Tenderness - Respiratory Respiratory exam: Normal lung sounds bilaterally. negative: Respiratory distress - Cardiovascular Cardiovascular Exam: Regular rate, Normal rhythm, Normal heart sounds - GI/Abdominal GI/Abdominal exam: Soft, Normal bowel sounds. negative: Tenderness - Extremities Extremities exam: Normal inspection, Full ROM, Normal capillary refill. negative: Tenderness - Back Back exam: Reports: Tenderness, Other (surgical wound edges are well approximated with didier. there is scant amount of serosnaguinous drainage without foul odor. there is no erythema, fluctuance, streaking or warmth of the surrounding skin) - Skin Skin exam: Rash (scattered purpura of b/l lower extremities. ), Other (stage II sacral decubitus ulcer) Results - Labs Result Diagrams: 11/06/16 15:56 11/06/16 15:56 Labs Last 24 Hours: Laboratory Results - last 24 hr 11/06/16 11/06/16 11/06/16 10:31 15:56 15:56 WBC 6.9 RBC 3.49 L Hgb 10.0 L Hct 31.1 L MCV 89.1 MCH 28.6 MCHC 32.2 RDW 12.3 Plt Count 209 MPV 10.1 Gran % 74.4 Lymphocytes % 19.7 Monocytes % 3.8 Eosinophils % 1.7 Basophils % 0.4 PT 11.4 INR 1.05 APTT 27.90 Bleeding Time 4.0 Sodium 140 Potassium 4.4 Chloride 103 Carbon Dioxide 32.5 H Anion Gap 4.5 L BUN 7 L Creatinine 0.7 Estimated GFR > 60 Random Glucose 85 Calcium 7.8 L Total Bilirubin 0.60 AST 12 L ALT 27 Alkaline Phosphatase 53 Total Protein 5.5 L Albumin 2.6 L Globulin 2.9 Albumin/Globulin Ratio 0.9 L Assessment and Plan - Assessment and Plan (1) MRSA (methicillin resistant Staphylococcus aureus) infection Current Visit: Yes Status: Acute Base Code: A49.02 - METHICILLIN RESIS STAPH INFECTION, UNSP SITE Comment: 11/06/16- cuture from wound on 10/29 shows MRSA sensitive to bactrim and vancomycin. Patient failed outpatien bactrim and was started on vancomycin. CBC and CMP unremarkable. no evidence of sepsis. -PICC line ordered -will continue to have pharmacy dose vancomycin -will get SW on board to see if home infusion will be covered (2) Decubitus ulcer Current Visit: Yes Status: Acute Qualifiers: Pressure ulcer location: sacral region Pressure ulcer stage: stage 2 Qualified Code(s): L89.152 - Pressure ulcer of sacral region, stage 2 Base Code: L89.90 - PRESSURE ULCER OF UNSPECIFIED SITE, UNSPECIFIED STAGE Comment: 11/06/16- stage II decubitus ulcer present below surgical wound. -apply duoderm -turn q2H -encourage ambulation -add air cushion (3) UTI (urinary tract infection) Current Visit: No Status: Acute Qualifiers: Urinary tract infection type: acute cystitis Hematuria presence: with hematuria Qualified Code(s): N30.01 - Acute cystitis with hematuria Base Code: N39.0 - URINARY TRACT INFECTION, SITE NOT SPECIFIED Comment: - patient following with Dr. Issa, urology, for urinary retention resulting in weaver catheter 2/2 UTI. He has follow up scheduled next week (4) Full code status Current Visit: Yes Status: Acute Base Code: Z78.9 - OTHER SPECIFIED HEALTH STATUS Comment: 11/06/16- patient is full code (5) DVT prophylaxis Current Visit: Yes Status: Acute Base Code: [id number] - Comment: 11/06/16- will add lovenox 40mg sq daily Subjective - Date Date of Progress Note: 11/08/16 - Subjective Nursing Care Plan Problem List Activity Intolerance Start: 11/06/16 16: 25 Freq: Status: Active Created 11/06/16 16:25 SAF (Rec: 11/06/16 16:25 SAF [id number]) Knowledge Deficit Start: 11/06/16 16: 25 Freq: Status: Active Created 11/06/16 16:25 SAF (Rec: 11/06/16 16:25 SAF [id number]) Pain Start: 11/06/16 16: 25 Freq: Status: Complete Created 11/06/16 16:25 SAF (Rec: 11/06/16 16:25 SAF [id number]) Edit Status 11/06/16 20:49 SAF (Rec: 11/06/16 20:49 SAF [id number]) Active=>Complete Subjective: 66yo male with CC of Thoracic radiculopathy s/p spinal stimulator implant 8 weeks ago that has since become infected. Patient had stimulator placed 8 weeks ago and reports that he always had some clear drainage from the area. About 2-3 weeks ago he began having symptoms of a UTI. He was treated with bactrim and eventually had to have weaver placed by Dr. Issa, urology due to retention. The bactrim caused a rash on his lower extremities which his pcp biopsied and believes to be a vasculitis. He then began to notice more drainage and change in consistency from the stimulator. He presented at our ED on the and was seen by Dr. Tesfaye who sent culture of wound drainage. Results were consistent with MRSA that was sensitive to vancomycin. Dr. El performed removal of the stimulator yesterday and patient tolerated that procedure well. He as started on Vancomycin with pharmacy to dose. 11/06/16- Patient states he is doing well after the surgery to remove stimulator. He says his pain is currently controlled. He denies any nausea, vomiting, fever, chills, headache. He has follow up with urology next week he thinks for removal of catheter.
[2016-11-07] MEDS: VANCOMYCIN HCL 1,000 MG in 0.9 % SODIUM CHLORIDE 250ML 250 ML IVPB SCH ×2 (09:19→17:55)
[2016-11-07] MEDS: 0.9 % SODIUM CHLORIDE 10ML SYR IVP SCH ×2 (10:16→19:05)
[2016-11-07] MEDS: HEPARIN SODIUM FLUSH 100 UNITS/ML SYR 5ML IV SCH ×2 (10:17→19:05)
[2016-11-07] MEDS: OXYCODONE/APAP 10MG-325MG TABLET PO PRN ×2 (10:43→17:14)
[2016-11-07] MEDS ORDERED: METOPROLOL SUCC 25 MG TAB.ER PO SCH (17:45)
--- NOTE | 2016-11-08 07:08 | Discharge Summary ---
Providers Discharge Summary Date: 11/07/16 Expected Date of Discharge: 11/07/16 Attending physician: LUI EL D.O. Primary care physician: JESS CARR D.O. Consults: Consult Orders 11/06/16 15:34 Consult - Medical Management NOW Consulting Provider: PAM HAND Physician Instructions: medical management for antibiotic therapy Reason For Exam: medical management and discharge planning for anti Physical Exam - Vital Signs Vital Signs: Vital Signs - Last 24 Hrs Temp Pulse Resp BP BP Pulse Ox 11/07/16 19:20 98.2 F 64 16 99/58 98 11/07/16 11:16 98.5 F 99/68 11/07/16 10:00 97.8 F 59 L 16 94/56 97 11/07/16 08:25 20 - General General Appearance: Alert, Oriented x3, Cooperative, No acute distress - Head Head exam: Normal inspection - Eye Eye exam: Normal appearance, PERRL - ENT ENT exam: Normal exam, Mucous membranes moist, Normal external ear exam, Normal orophraynx, TM's normal bilaterally Ear exam: Normal external inspection. negative: External canal tenderness Nasal Exam: Normal inspection. negative: Discharge, Sinus tenderness Mouth exam: Normal external inspection, Tongue normal Teeth exam: Normal inspection. negative: Dental caries Throat exam: Normal inspection. negative: Tonsillar erythema, Tonsillar exudate - Neck Neck exam: Normal inspection, Full ROM. negative: Tenderness - Respiratory Respiratory exam: Normal lung sounds bilaterally. negative: Respiratory distress - Cardiovascular Cardiovascular Exam: Regular rate, Normal rhythm, Normal heart sounds - GI/Abdominal GI/Abdominal exam: Soft, Normal bowel sounds. negative: Tenderness - Extremities Extremities exam: Normal inspection, Full ROM, Normal capillary refill. negative: Tenderness - Back Back exam: Reports: Tenderness, Other (surgical wound edges are well approximated with didier. there is scant amount of serosnaguinous drainage without foul odor. there is no erythema, fluctuance, streaking or warmth of the surrounding skin) - Skin Skin exam: Rash (scattered purpura of b/l lower extremities. ), Other (stage II sacral decubitus ulcer) Hospitalization - Hospitalization Admission Diagnosis: MRSA infection - Problem List/Discharge Diagnosis (1) MRSA (methicillin resistant Staphylococcus aureus) infection Current Visit: Yes Status: Acute Base Code: A49.02 - METHICILLIN RESIS STAPH INFECTION, UNSP SITE Comment: 11/07/16- cuture from wound on 10/29 shows MRSA sensitive to bactrim and vancomycin. Patient failed outpatien bactrim and was started on vancomycin. CBC and CMP unremarkable. no evidence of sepsis. -PICC line placed. -consulted pharmacy for dosing. will transition to 1500mg IV q24h -will continue to have pharmacy dose vancomycin. home order written -home infusion covered. SW will be contacting [facility] and we will plan to discharge home after 6pm infusion of 1gm and then he will start his next infusion at 1500mg dose at 10am on the . Patient and are very pleased with this plan. Will continue IV vancomycin for total 8 day course. -follow up with Dr. El next week as scheduled. Will need to have him evaluate prior to removal of PICC -will get him scheduled with pcp as well for further follow up of vasculitis and decubitis ulcer (2) Decubitus ulcer Current Visit: Yes Status: Acute Discharge Diagnosis: Pressure ulcer location: sacral region Pressure ulcer stage: stage 2 Qualified Code(s): L89.152 - Pressure ulcer of sacral region, stage 2 Base Code: L89.90 - PRESSURE ULCER OF UNSPECIFIED SITE, UNSPECIFIED STAGE Comment: 11/07/16- stage II decubitus ulcer present below surgical wound. -apply duoderm -turn q2H -encourage ambulation -add air cushion (3) UTI (urinary tract infection) Current Visit: No Status: Acute Discharge Diagnosis: Urinary tract infection type: acute cystitis Hematuria presence: with hematuria Qualified Code(s): N30.01 - Acute cystitis with hematuria Base Code: N39.0 - URINARY TRACT INFECTION, SITE NOT SPECIFIED Comment: - patient following with Dr. Issa, urology, for urinary retention resulting in weaver catheter 2/2 UTI. He has follow up scheduled next week (4) Full code status Current Visit: Yes Status: Acute Base Code: Z78.9 - OTHER SPECIFIED HEALTH STATUS Comment: 11/07/16- patient is full code (5) DVT prophylaxis Current Visit: Yes Status: Acute Base Code: [id number] - Comment: 11/07/16- lovenox 40mg sq daily - Hospitalization Course Disposition: Home Health Service Procedures: Imaging and X-Rays 11/06/16 21:30 CHEST AP or PA ONLY [RAD] Stat Abnormal Labs: Abnormal Lab Results 11/06/16 11/06/16 Range/Units 15:56 15:56 RBC 3.49 L (4.40-5.70) M/uL Hgb 10.0 L (14.0-18.0) gm/dl Hct 31.1 L (42.0-52.0) % Carbon Dioxide 32.5 H (22-30) mmol/L Anion Gap 4.5 L (7-16) BUN 7 L (9-20) mg/dL Calcium 7.8 L (8.5-10.1) mg/dL AST 12 L (17-59) U/L Total Protein 5.5 L (6.3-8.2) gm/dL Albumin 2.6 L (3.5-5.0) gm/dL Albumin/Globulin Ratio 0.9 L (1.1-1.8) Condition at Discharge: (2) Stable Discharge Medications - Discharge Medications Home Medications: Ambulatory Orders Aspirin, Regular 325 mg PO DAILY 12/16/13 [Last Taken 1 Day Ago ~10/20/16] Atorvastatin Calcium [Lipitor] 40 mg PO DAILY 12/16/13 [Last Taken 1 Day Ago ~] Gabapentin 300 mg PO TID 02/28/14 [Last Taken 1 Day Ago ~10/20/16] Pain Pump (Dilaudid) IP CONT 03/11/15 [Last Taken 10/21/16] Guaifenesin [Mucus Relief] 400 mg PO DAILY 10/13/16 [Last Taken 1 Day Ago ~10/20] Metoprolol Succinate [Toprol Xl] 25 mg PO DAILY 10/13/16 [Last Taken 1 Day Ago ~ 10/20/16] Naloxegol Oxalate [Movantik] 25 mg PO DAILY 10/13/16 [Last Taken 1 Day Ago ~12/29] Discharge Plan - Discharge Instructions Activity at Discharge: Resume Usual Activities As Tolerated Diet at Discharge: Regular Diet (high protein diet for optimal wound healing) Instructions: Vancomycin (By injection), MRSA (Methicillin-Resistant Staphylococcus Aureus) (DC), Surgical Site Infections (DC)
== END 2016-11-07 19:15 | disposition home health service (06) | DRG 30 ==
LOC: SUR 10:24 → MEDSURG 14:30 → SUR 15:33 → MEDSURG 15:34 → SUR 11-07 19:15 → MEDSURG 11-07 19:15
PROVIDERS: ADMIT Pain Medicine Interventional Pain Medicine; ATTEND Pain Medicine Interventional Pain Medicine
PROC: 00PV3MZ Removal of Neurostimulator Lead from Spinal Cord, Percutaneous Approach (ICD-10-PCS; 2016-11-06)
PROC: 0JPT3MZ Removal of Stimulator Generator from Trunk Subcutaneous Tissue and Fascia, Percutaneous Approach (ICD-10-PCS; principal; 2016-11-06 12:00)
DX: T85.738A Infection and inflammatory reaction due to other nervous system device, implant or graft, initial encounter (principal); A49.02 Methicillin resistant Staphylococcus aureus infection, unspecified site; E11.9 Type 2 diabetes mellitus without complications; M54.14 Radiculopathy, thoracic region; I48.2 Chronic atrial fibrillation; Z79.01 Long term (current) use of anticoagulants; Z95.0 Presence of cardiac pacemaker
CPT/HCPCS: 71010; 80053; 85002; 85025; 85610; 85730; J7050

== ENCOUNTER 2017-06-04 01:08 | Emergency (ER) | payer BC ==
[2017-06-04] MEDS ORDERED: METHYLNALTREXONE BROMIDE (RELISTOR) 12MG/0.6ML SYRINGE SQ ONE (01:15)
--- NOTE | 2017-06-04 01:31 | Emergency Department Record ---
History of Present Illness - General Chief Complaint: Abdominal Pain Stated Complaint: CONSTIPATED Time Seen by Provider: 06/04/17 01:09 Source: Patient Mode of Arrival: Ambulatory Limitations: No limitations - History of Present Illness Initial Comments: 67 yo male presents to ED for evaluation of constipation symptoms for the past 3 -4 days. Patient reports that he takes Vicoprofen daily for chronic back pain symptoms, and dulcolax normally improves his symptoms. Patient reports no success with dulcolax at home however. Patient denies abdominal pain, nausea, vomiting, or recent illness. MD Complaint: Other Onset/Timin -: Days(s) Radiation: None Migration to: No migration Severity: Moderate Quality: Fullness Consistency: Constant Improves With: Nothing Worsens With: Nothing Associated Symptoms: Denies other symptoms - Related Data Home Medications Medication Instructions Recorded Confirmed Last Taken Hydrocodone/Ibuprofen 1 tab PO DAILY 06/04/17 06/04/17 Unknown [Hydrocodone-Ibuprofen 7.5-200] Previous Rx's Medication Instructions Recorded Methylnaltrexone Fowler [Relistor] 450 mg PO DAILY #30 tablet 06/04/17 Allergies Allergy/AdvReac Type Severity Reaction Status Date / Time sulfamethoxazole Allergy Intermediate RASH Verified 11/06/16 15:38 [From Bactrim] Penicillins Allergy Unknown PT UNSURE Verified 11/06/16 15:38 OF REACTION trimethoprim [From Bactrim] Allergy RASH Verified 11/06/16 15:38 levofloxacin [From Levaquin] AdvReac Intermediate RASH Verified 11/06/16 15:38 Travel Screening - Travel/Exposure Within Last 30 Days Have you traveled within the last 30 days?: No - Travel/Exposure Within Last Year Have you traveled outside the [place] in the last year?: No - Additonal Travel Details Have you been exposed to anyone with a communicable illness?: No - Travel Symptoms Symptom Screening: None Review of Systems Constitutional: Denies: Chills, Fever, Malaise, Night sweats Eyes: Denies: Eye discharge, Eye pain ENT: Denies: Congestion, Ear pain, Epistaxis Respiratory: Denies: Cough, Dyspnea Cardiovascular: Denies: Chest pain, Dyspnea on exertion Endocrine: Denies: Fatigue, Heat or cold intolerance Gastrointestinal: Reports: Constipation. Denies: Abdominal pain, Nausea, Vomiting Genitourinary: Denies: Incontinence, Retention Musculoskeletal: Denies: Arthralgia, Back pain, Gout, Joint swelling Skin: Denies: Bruising, Change in color Neurological: Denies: Abnormal gait, Confusion, Headache, Seizure Psychiatric: Denies: Anxiety Hematological/Lymphatic: Denies: Anemia, Blood Clots Past Medical History - SOCIAL HISTORY Smoking Status: Current every day smoker Alcohol Use: None Drug Use: None - RESPIRATORY Hx Respiratory Disorders: No - CARDIOVASCULAR Hx Cardio Disorders: Yes Hx Abnormal EKG: Yes (a fib) Hx Cardiac Cath: Yes Hx Heart Attack: Yes (2003) 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 To see Dr Cummings in November - ENDOCRINE Hx Endocrine Disorders: Yes Hx Diabetes: Yes (diet controlled) Comment:: recent FBS 110-130 - MUSCULOSKELETAL Hx Musculoskeletal Disorders: Yes Comment:: skin problems w/spots, rash-tests being done - PSYCH Hx Psych Problems: No Hx Anxiety: Yes - HEMATOLOGY/ONCOLOGY Hx Hematology/Oncology Disorders: Yes Hx Bruising: Yes Family Medical History Any Significant Family History?: No Hx Heart Disease: Father, Mother *Heart Comment: Both Parents had HOBSON's Physical Exam - General General Appearance: Alert, Oriented x3, Cooperative, Mild distress Limitations: No limitations - Head Head exam: Atraumatic, Normocephalic, Normal inspection Head exam detail: negative: Abrasion, Contusion, Sheth's sign, General tenderness, Hematoma, Laceration - Eye Eye exam: Normal appearance. negative: Conjunctival injection, Periorbital swelling, Periorbital tenderness, Scleral icterus - ENT Ear exam: negative: Auricular hematoma, Auricular trauma Nasal Exam: negative: Active bleeding, Discharge, Dried blood, Foreign body Mouth exam: negative: Drooling, Laceration, Muffled voice, Tongue elevation - Neck Neck exam: Normal inspection. negative: Meningismus, Tenderness - Respiratory Respiratory exam: Normal lung sounds bilaterally. negative: Rales, Respiratory distress, Rhonchi, Stridor - Cardiovascular Cardiovascular Exam: Regular rate, Normal rhythm, Normal heart sounds - GI/Abdominal GI/Abdominal exam: Soft. negative: Rebound, Rigid, Tenderness - Rectal Rectal exam: Deferred - exam: Deferred - Extremities Extremities exam: Normal inspection. negative: Pedal edema, Tenderness - Back Back exam: Denies: CVA tenderness (R), CVA tenderness (L) - Neurological Neurological exam: Alert, Normal gait, Oriented X3 - Psychiatric Psychiatric exam: Normal affect, Normal mood - Skin Skin exam: Normal color. negative: Abrasion Type of lesion: negative: abrasion Course Vital Signs 06/04/17 01:15 Temperature 98.2 F Pulse Rate [ 60 Pulse Ox Probe] Respiratory 16 Rate Blood Pressure 140/75 [Left Arm] Pulse Ox 99 - Reevaluation(s) Reevaluation #1: 06/04/17 01:29 Relistor given SQ, patient is currently in the bathroom. Reevaluation #2: 06/04/17 01:48 Abdomen: Stool throughout the colon, no evidence for obstruction. 06/04/17 01:56 Patient reports BM x 2, reports that he is feeling much improved. Disposition Disposition: Discharge Clinical Impression: Constipation Qualifiers: Constipation type: drug induced constipation Qualified Code(s): K59.03 - Drug induced constipation Disposition: Home, Self-Care Condition: (2) Stable Instructions: Constipation (ED) Additional Instructions: Return to ED if your symptoms worsen or if you have any concerns. Follow-up with your family doctor in 3-5 days as directed. Prescriptions: Methylnaltrexone Fowler [Relistor] 450 mg PO DAILY #30 tablet Forms: Patient Portal Access Time of Disposition: 01:31 Quality - Quality Measures Quality Measures: N/A - Blood Pressure Screening Does Patient Have Any of the Following: No Blood Pressure Classification: Hypertensive Reading Systolic Measurement: 140 Diastolic Measurement: 75 Screening for High Blood Pressure: < First Hypertensive BP, F/U Documented > [ [id number]] First Hypertensive Follow-up Interventions: Referral to alternative/primary care provider.
--- NOTE | 2017-06-04 10:40 | RADIOLOGY REPORT ---
EXAM: ABDOMEN, TWO VIEWS HISTORY: CONSTIPATION. TECHNIQUE: Supine and upright views of the abdomen were obtained. Comparison: Two view abdomen 11/10/14. FINDINGS: Battery pack overlying the right lower quadrant as before. Associated small caliber catheter extends to overlie the lower lumbar spinal canal and ascends up to the approximate T11-T12 interspace level as before. Prominent amount of stool scattered throughout the colon may be associated with constipation. Very few, if any, air fluid levels are seen aside from the upper GI tract and no free air identified. The dome of the right hemidiaphragm is not entirely included on the upright abdomen view, however. Prominent vascular calcification. IMPRESSION: 1. PROMINENT STOOL THROUGHOUT THE COLON SUGGESTING CONSTIPATION. 2. BATTERY PACK RIGHT LOWER QUADRANT WITH ASSOCIATED CATHETER EXTENDING UP TO THE APPROXIMATE T11-T12 INTERSPACE BEFORE. JOB NUMBER: [id number] MTDD
== END 2017-06-04 02:01 | disposition home or self-care (01) ==
LOC: ER 01:08
DX: K59.03 Drug induced constipation (principal); T40.2X5A Adverse effect of other opioids, initial encounter; F17.210 Nicotine dependence, cigarettes, uncomplicated; I25.2 Old myocardial infarction
CPT/HCPCS: 74019; 96372; 99283; 99284; J2212

== ENCOUNTER 2017-09-11 14:03 | Day surgery (SDC) | payer BC ==
[2017-09-11] MEDS ORDERED: LIDOCAINE 2% MDV (20MG/ML) 20ML VIAL IV ONE (14:04)
[2017-09-11] MEDS ORDERED: PROPOFOL 10 MG/ML VIAL IV ONE (14:04)
--- NOTE | 2017-09-15 13:10 | Operative Note ---
DATE OF SURGERY: 09/11/2017 OPERATION: ESOPHAGOGASTRODUODENOSCOPY with Zamorano dilation. PREOPERATIVE DIAGNOSIS: Dysphagia. POSTOPERATIVE DIAGNOSIS: Normal upper endoscopy and dysphagia. PROCEDURE: After informed consent was obtained from the patient, the patient was placed in the left lateral decubitus position in the endoscopy suite, sedated and monitored by the department of anesthesia. Once sedated, a well-lubricated OEF339 gastroscope was placed in the posterior oropharynx and under direct visualization passed to the proximal, mid, and distal esophagus. The endoscope in its length appeared unremarkable. There was no resistance to passage of the endoscope. The gastric body, antrum, pylorus, duodenal bulb and sweep were unremarkable. J-turn views of the proximal stomach were unremarkable. The endoscope was then straightened and retracted from the patient. At this point, a 52-[place] Zamorano dilator was passed without resistance. The dilator was removed. The endoscope was reinserted. There were no tears noted. RECOMMENDATIONS: The patient should resume his medications and diet. If he has recurrent issues, perhaps an esophageal motility evaluation would be helpful. The other option would be a barium esophagogram. It should be noted, however, that he did have this performed in early 2017 which was unremarkable. As always, thank you for allowing me to participate in the healthcare of your patients. CC: DO ISAURA Stephen
== END 2017-09-11 15:22 | disposition home or self-care (01) ==
LOC: HOP 14:03
PROVIDERS: ATTEND Internal Medicine Gastroenterology
DX: R13.10 Dysphagia, unspecified (principal); E78.00 Pure hypercholesterolemia, unspecified; G62.9 Polyneuropathy, unspecified

== ENCOUNTER 2018-07-15 06:07 | Day surgery (SDC) | payer BC ==
[2018-07-15] MEDS ORDERED: BUPIVACAINE 0.5% W/EPI MPF 30 ML VIAL IVP ONE (06:08)
[2018-07-15] MEDS ORDERED: PROPOFOL 10 MG/ML VIAL IV ONE (06:08)
[2018-07-15] MEDS ORDERED: LIDOCAINE 2% MDV (20MG/ML) 20ML VIAL IV ONE (06:08)
[2018-07-15] MEDS ORDERED: LIDOCAINE 1% W/EPI 1:200,000 MPF 30ML SQ ONE (06:08)
[2018-07-15] MEDS ORDERED: DEXAMETHASONE PRESERVATIVE FREE 10MG/ML VIAL IV ONE (06:08)
--- NOTE | 2018-07-15 16:29 | Operative Note ---
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 OPERATION: FLUOROSCOPICALLY-GUIDED INFILTRATIONAL BLOCK BILATERAL INTERCOSTAL NERVES, T5, 6, AND 7. SURGEON: LUI LUKE D.O. ANESTHESIA: ANESTHESIA PROVIDER: INDICATION: This patient with a history of chest wall pain. Examination shows tenderness along the intercostals under imaging identified as the above. Diagnostics were noncontributory although there was spurring and thoracic spine abnormalities. No rib fractures. PROCEDURE: Intravenous line, vital sign monitoring, IV sedation by Anesthesia. Patient position prone. Sterile prep, sterile technique. The intercostals at T5 , 6, and 7 were identified bilaterally. The skin proximal to the angle at each level was infiltrated then a 22-gauge needle was inserted, walked out the lower margin of the rib, aspiration negative for blood, and 5 mL of 0.5% Marcaine with Epinephrine and Dexamethasone injected at each site bilaterally atraumatic , no complications. Areas were cleaned. He was transported to the Recovery Room stable. We will monitor and evaluate. cc: Dr. Key Perez JOB NUMBER: [id number] MTDD
== END 2018-07-15 08:28 | disposition home or self-care (01) ==
LOC: SUR 06:07
PROVIDERS: ATTEND Pain Medicine Interventional Pain Medicine
DX: G58.0 Intercostal neuropathy (principal); E78.00 Pure hypercholesterolemia, unspecified; G62.9 Polyneuropathy, unspecified
CPT/HCPCS: 64421; 01992; 36416; 82948; J1100

== ENCOUNTER 2018-08-26 06:09 | Day surgery (SDC) | payer BC ==
[2018-08-26] MEDS ORDERED: PROPOFOL 10 MG/ML VIAL IV ONE (06:10)
[2018-08-26] MEDS ORDERED: MIDAZOLAM HCL 2MG/2ML VIAL IV ONE (06:10)
[2018-08-26] MEDS ORDERED: LIDOCAINE 2% MDV (20MG/ML) 20ML VIAL IV ONE (06:10)
[2018-08-26] MEDS ORDERED: FENTANYL PF 100MCG/2ML VIAL IV ONE (06:10)
[2018-08-26] MEDS ORDERED: RINGERS SOLUTION,LACTATED 1,000 ML IV ONE (06:38)
[2018-08-26] MEDS ORDERED: BUPIVACAINE 0.5% W/EPI MPF 30 ML VIAL SQ ONE (08:10)
[2018-08-26] MEDS ORDERED: DEXAMETHASONE PRESERVATIVE FREE 10MG/ML VIAL SQ ONE (08:10)
[2018-08-26] MEDS ORDERED: LIDOCAINE 1% W/EPI 1:200,000 MPF 30ML SQ ONE (08:10)
[2018-08-26] MEDS ORDERED: BUPIVACAINE 0.5% (5MG/ML) PF 30ML VIAL SQ ONE (08:10)
--- NOTE | 2018-08-27 08:32 | Operative Note ---
DATE OF SURGERY: 08/26/2018 PREOPERATIVE DIAGNOSIS: Intercostal neuritis, ICD10 code G58.0. OPERATION: Fluoroscopic-guided intercostal nerve block T5, 6, 7 bilateral. ANESTHESIA: Local with sedation. ANESTHESIA PROVIDER: Maykel Pedraza INDICATION: This patient presents with chest wall pain. Diagnostics are noncontributory. There are no fractures although there is fairly extensive arthritic change thoracic spine. Due to the failure of therapies and the success of previous intercostal blocks and rhizotomies, he is here for repeat intercostal block with an exacerbation of his pain. PROCEDURE: Intravenous line, vital sign monitoring, IV sedation. Prepped and draped with sterile technique. Under imaging, the intercostals in the area of pain were identified and marked at T5, 6, and 7 bilateral. With the patient prone, sterile prep, sterile technique, skin at the lower margin of each rib infiltrated, and then a 22-gauge needle was walked up the lower margin of the rib. Aspiration negative for blood. Then 5 mL of 0.5% Marcaine with dexamethasone injected at each intercostal level bilateral. All areas cleaned. Topical antibiotic. Sterile dressing applied. We will monitor and evaluate. MTDD
== END 2018-08-26 08:55 | disposition home or self-care (01) ==
LOC: SUR 06:09
PROVIDERS: ATTEND Pain Medicine Interventional Pain Medicine
DX: G58.0 Intercostal neuropathy (principal); I10 Essential (primary) hypertension; E78.00 Pure hypercholesterolemia, unspecified
CPT/HCPCS: 64421; 01992; J1100; J3010; J7120